=== PATIENT | female | born 1990 | race American Indian/Alaskan Native ===

== ENCOUNTER 2016-07-04 17:41 | Emergency (ER) | payer MEDICAID ==
[2016-07-04 19:23] LABS: Bilirubin,Urine NEG (Negative); Blood,Urine NEG (Negative); Ketones,Urine NEG (Negative); Leukocyte Esterase,Urine NEG (Negative); Mucus,Urine FEW /HPF; Nitrite,Urine NEG (Negative); Protein,Urine <15 mg/dL mg/dL (Negative); Urobilinogen,Urine < 2.0 mg/dL (<2.0); WBC,Urine < 1.0 /HPF (0.0-6.0)
[2016-07-04 19:59] LABS: Basophils % (Auto) 0.7 % (0.0-1.8); Eosinophils % (Auto) 0.7 % (0.0-4.3); Hematocrit 27.3 % (30.3-42.9); Hemoglobin 8.2 gm/dl (10.1-14.3); Mean Corpuscular HGB Conc 30 % (30-34); Mean Corpuscular Volume 62 fl (79-97); Platelet Count 297 K/mm3 (140-440); Red Blood Count 4.39 M/mm3 (3.65-5.03); White Blood Count 8.7 K/mm3 (4.5-11.0)
[2016-07-04 20:00] LABS: Mean Corpuscular Hemoglobin 19 pg (28-32); Red Cell Distribution Width 23.2 % (13.2-15.2)
[2016-07-04 20:19] LABS: Alanine Aminotransferase 11 units/L (7-56); Albumin 3.9 g/dL (3.9-5); Albumin/Globulin Ratio 1.1 %; Alkaline Phosphatase 55 units/L (35-129); Anion Gap 19 mmol/L; BUN/Creatinine Ratio 11.66; Bilirubin,Total 0.4 mg/dL (0.1-1.2); Blood Urea Nitrogen 7 mg/dL (7-17); Calcium 8.8 mg/dL (8.4-10.2); Carbon Dioxide 21 mmol/L (22-30); Chloride 99.8 mmol/L (98-107); Glucose 109 mg/dL (65-100); Lipase 34 units/L (13-60); Potassium 3.8 mmol/L (3.6-5.0); Sodium 136 mmol/L (137-145); Total Protein 7.3 g/dL (6.3-8.2)
[2016-07-05] MEDS ORDERED: BENADRYL PO ONE (02:51)
[2016-07-05] MEDS ORDERED: TYLENOL PO ONE (02:51)
--- NOTE | 2016-07-05 04:54 | Ultrasound Report ---
FINAL REPORT PROCEDURE: US OB TRANSVAGINAL TECHNIQUE: Real-time transvaginal sonography of the uterus, placenta, amniotic fluid, adnexa, and fetus was performed with image documentation. Measurements were obtained to determine age/size. M-mode Doppler was used to document heartbeat. CPT 51923 HISTORY: preg, abd pain COMPARISON: No prior studies are available for comparison. FINDINGS: CRL: 7.8mm, which corresponds to a gestational age of: 6weeks, 5 days. Yolk Sac: Normal. Embryonic Cardiac Activity: 127 beats per minute Gestational Sac: Normal. Right Ovary: There is a complex cyst measuring 2 centimeters. Left Ovary: Normal. Estimated delivery date: 02/23/2017 Comment: Complete anatomic survey at 18-20 weeks suggested. IMPRESSION: 1. Single living intrauterine gestation at approximately 6 weeks and 5 days 2. EDC by US 02/23/2017.
--- NOTE | 2016-07-05 04:56 | Ultrasound Report ---
FINAL REPORT PROCEDURE: US OB \T\lt; = 14 WEEKS FETUS TECHNIQUE: Real-time transabdominal sonography of the uterus, placenta, amniotic fluid, adnexa, and fetus was performed with image documentation. Measurements were obtained to determine age/size. M-mode Doppler was used to document heartbeat. CPT 52336 HISTORY: preg, abd pain COMPARISON: No prior studies are available for comparison. FINDINGS: CRL: 7.8 mm, which corresponds to a gestational age of: 6 weeks, 5 days. Yolk Sac: Normal. Embryonic Cardiac Activity: 127 beats per minute Gestational Sac: Normal. Amniotic fluid: Normal. Cervix: Normal. Right Ovary: There is a 2 centimeter complex cyst. Left Ovary: Normal. Estimated delivery date: 02/23/2017 Uterus and adnexa: Normal. IMPRESSION: Single live intrauterine gestation at approximately 6 weeks and 5 days. EDC by US 02/23/2017
--- NOTE | 2016-07-05 05:19 | Emergency Department Report ---
HPI - General Chief Complaint: Abdominal Pain Time Seen by Provider: 07/05/16 02:42 - HPI HPI: This is a 25-year-old female presents emergency Department with complaint of a 3 week history of intermittent lower abdominal discomfort. Just complains of a irregular menstrual cycle with her last normal menstrual cycle being in April. Patient says that she took 2 different home tests and they were negative. She has a history of right fallopian tube removal secondary to an ectopic . She has taken some Tylenol, but not today, for her symptoms without much relief. The patient also complains of some generalized itching for which she has been taking Benadryl. Patient is with one prior ectopic prior to today's evaluation. She does not have a primary care doctor or SUSTAINABILITY EXECUTIVE DIRECTOR. She denies any vaginal bleeding, vaginal discharge, dysuria, fever, nausea or vomiting. No recent travel or sick contacts at home. ED Past Medical Hx - Past Medical History Previous Medical History?: Yes Additional medical history: ectopic - Surgical History Past Surgical History?: Yes Additional Surgical History: , ectopic , Right fallopian tube removal - Social History Smoking Status: Former Smoker Substance Use Type: Alcohol, Non Opiate Pain - Medications Home Medications: Home Medications Medication Instructions Recorded Confirmed Last Taken Type Ciprofloxacin HCl [Cipro] 250 mg PO BID 05/14/13 05/14/13 Unknown History Loperamide [Imodium] 2 mg PO QID PRN 05/14/13 05/14/13 Unknown History Ondansetron [Zofran Odt] 4 mg PO Q8HR PRN 05/14/13 05/14/13 Unknown History predniSONE [Deltasone] 1 tab PO TID #12 tablet 05/14/13 Unknown Rx Vit-Fe Fumar-FA [ 1 tab PO QDAY #30 tablet 07/05/16 Unknown Rx Vitamin] ED Review of Systems ROS: Stated complaint: SEVERE ABD PAIN/HEADACHE Other details as noted in HPI Comment: All other systems reviewed and negative Constitutional: denies: chills, fever Eyes: denies: eye pain, eye discharge, vision change ENT: denies: ear pain, throat pain Respiratory: denies: cough, shortness of breath, wheezing Cardiovascular: denies: chest pain, palpitations Gastrointestinal: abdominal pain. denies: nausea, vomiting Genitourinary: denies: urgency, dysuria, discharge Musculoskeletal: denies: back pain, joint swelling, arthralgia Skin: pruritus. denies: change in color Neurological: denies: headache, weakness, paresthesias Physical Exam - Physical Exam Vital Signs: Vital Signs 07/04/16 18:19 Temperature 99 F Pulse Rate 74 Respiratory 18 Rate Blood Pressure 110/71 O2 Sat by Pulse 100 Oximetry Physical Exam: GENERAL: The patient is well-developed well-nourished. HEENT: Normocephalic. Atraumatic. Extraocular motions are intact. Patient has moist mucous membranes. Pupils equal reactive to light bilaterally. NECK: Supple. Trachea is midline. CHEST/LUNGS: Clear to auscultation. There is no respiratory distress noted. HEART/CARDIOVASCULAR: Regular. There is no tachycardia. There is no gallop rub or murmur. ABDOMEN: Abdomen is soft. Patient's abdominal discomfort is not reproducible palpation. No guarding or rebound tenderness. No peritoneal signs. Patient has normal bowel sounds. There is no abdominal distention. SKIN: Skin is warm and dry. NEURO: The patient is awake, alert, and oriented. The patient is cooperative. The patient has no focal neurologic deficits. The patient has normal speech. MUSCULOSKELETAL: There is no tenderness or deformity. There is no limitation range of motion. There is no evidence of acute injury. ED Course Vital Signs 07/04/16 18:19 Temperature 99 F Pulse Rate 74 Respiratory 18 Rate Blood Pressure 110/71 O2 Sat by Pulse 100 Oximetry ED Medical Decision Making - Lab Data Result diagrams: 07/04/16 19:36 07/04/16 19:36 - Radiology Data Radiology results: report reviewed Transvaginal/ ultrasound shows a live intrauterine at about 6 weeks and 2 days. - Medical Decision Making 25-year-old female presents the emergency department with complaint of a 3 week history of some lower abdominal discomfort. Despite home tests 2 the patient had a positive urine test here. Her beta hCG quantitative level was at about 30,000. Ultrasound was done that shows a live intrauterine at about 6 weeks. Patient has some anemia but denies any bleeding and does not require any transfusion at this time. Her vital signs are stable throughout her ED course including being afebrile. Her abdominal pain is most likely from being . We discussed the need to come back if she has right lower quadrant localized and/or sharp pains. She will be given vitamins and referrals for SUSTAINABILITY EXECUTIVE DIRECTOR. She will return to the ER with any worsening of her symptoms or any acute distress. - Differential Diagnosis , UTI, fibroids, miscarriage, appendicitis Critical Care Time: No Critical care attestation.: If time is entered above; I have spent that time in minutes in the direct care of this critically ill patient, excluding procedure time. ED Disposition Clinical Impression: Qualifiers: Weeks of gestation: less than 8 weeks Qualified Code(s): Z3A.01 - Less than 8 weeks gestation of Abdominal pain Qualifiers: Abdominal location: lower abdomen, unspecified Qualified Code(s): R10.30 - Lower abdominal pain, unspecified Disposition: DISCHARGED TO HOME OR SELFCARE Is pt being admited?: No Condition: Stable Instructions: Abdominal Pain (ED), (ED) Additional Instructions: Please follow-up with an SUSTAINABILITY EXECUTIVE DIRECTOR in the next few days. Please start taking the vitamins. You can take Tylenol every 4 hours, using weight-based dosing, as needed for fever or discomfort. Otherwise do not take any medications that are not prescribed by a physician. Prescriptions: Vit-Fe Fumar-FA [ Vitamin] 1 tab PO QDAY #30 tablet Referrals: PRIMARY CAREMD [Primary Care Provider] - 3-5 Days DALLAS MORENO MD [Staff Physician] - 3-5 Days FERNANDA RODRIGUEZ MD [Staff Physician] - 3-5 Days ASHTYN AUSTIN MD [Staff Physician] - 3-5 Days Time of Disposition: 05:20
[2016-07-05 06:24] VITALS: BP 123/77
== END 2016-07-05 06:23 | disposition home or self-care (01) ==
LOC: ED 17:41
DX: O26.891 Other specified pregnancy related conditions, first trimester (principal); R10.30 Lower abdominal pain, unspecified; Z3A.01 Less than 8 weeks gestation of pregnancy; Z87.891 Personal history of nicotine dependence
CPT/HCPCS: 36415; 76801; 76817; 80053; 81001; 81025; 83690; 84702; 85025; 99284

== ENCOUNTER 2016-08-10 22:47 | Emergency (ER) | payer MEDICAID ==
[2016-08-11] MEDS ORDERED: BICILLIN L-A IM ONE (03:32)
[2016-08-11] MEDS ORDERED: TYLENOL PO ONE (03:32)
--- NOTE | 2016-08-11 03:46 | Emergency Department Report ---
ED ENT HPI - General Chief complaint: Sore Throat Stated complaint: PREG 12WKS/THROAT PAIN Time Seen by Provider: 08/11/16 02:52 Source: patient Mode of arrival: Ambulatory Limitations: No Limitations - History of Present Illness Initial comments: 25-year-old female 12 weeks presents with complaint of sore throat for 3 days. Recent exposure family member with strep. Positive body aches. Patient speaking in full sentences no wheezing or stridor denies any difficulty breathing. Primarily complaining of sore throat. Took Tylenol at home with minimal relief of pain. MD complaint: sore throat Onset/Timin -: days(s) Location: throat Severity: moderate Severity scale (0 -10): 5 Quality: aching Consistency: constant Improves with: none - Related Data Home Medications Medication Instructions Recorded Confirmed Last Taken Ciprofloxacin HCl [Cipro] 250 mg PO BID 05/14/13 05/14/13 Unknown Loperamide [Imodium] 2 mg PO QID PRN 05/14/13 05/14/13 Unknown Ondansetron [Zofran Odt] 4 mg PO Q8HR PRN 05/14/13 05/14/13 Unknown Previous Rx's Medication Instructions Recorded Last Taken Type predniSONE [Deltasone] 1 tab PO TID #12 tablet 05/14/13 Unknown Rx Vit-Fe Fumar-FA [ 1 tab PO QDAY #30 tablet 07/05/16 Unknown Rx Vitamin] Acetaminophen [Children's 650 mg PO Q8H PRN #1 bottle 08/11/16 Unknown Rx Acetaminophen] Benzocaine/Menthol [Cepacol Sore 1 each MM Q4H PRN #18 lozenge 08/11/16 Unknown Rx Throat Lozenge] Allergies Allergy/AdvReac Type Severity Reaction Status Date / Time No Known Allergies Allergy Verified 05/14/13 00:38 ED Dental HPI - General Chief complaint: Sore Throat Stated complaint: PREG 12WKS/THROAT PAIN Time Seen by Provider: 08/11/16 02:52 Source: patient Mode of arrival: Ambulatory Limitations: No Limitations - Related Data Home Medications Medication Instructions Recorded Confirmed Last Taken Ciprofloxacin HCl [Cipro] 250 mg PO BID 05/14/13 05/14/13 Unknown Loperamide [Imodium] 2 mg PO QID PRN 05/14/13 05/14/13 Unknown Ondansetron [Zofran Odt] 4 mg PO Q8HR PRN 05/14/13 05/14/13 Unknown Previous Rx's Medication Instructions Recorded Last Taken Type predniSONE [Deltasone] 1 tab PO TID #12 tablet 05/14/13 Unknown Rx Vit-Fe Fumar-FA [ 1 tab PO QDAY #30 tablet 07/05/16 Unknown Rx Vitamin] Acetaminophen [Children's 650 mg PO Q8H PRN #1 bottle 08/11/16 Unknown Rx Acetaminophen] Benzocaine/Menthol [Cepacol Sore 1 each MM Q4H PRN #18 lozenge 08/11/16 Unknown Rx Throat Lozenge] Allergies Allergy/AdvReac Type Severity Reaction Status Date / Time No Known Allergies Allergy Verified 05/14/13 00:38 ED Review of Systems ROS: Stated complaint: PREG 12WKS/THROAT PAIN Other details as noted in HPI Constitutional: denies: chills, fever Eyes: denies: eye pain, eye discharge, vision change ENT: throat pain. denies: ear pain Respiratory: denies: cough, shortness of breath, wheezing Cardiovascular: denies: chest pain, palpitations Endocrine: no symptoms reported Gastrointestinal: denies: abdominal pain, nausea, diarrhea Genitourinary: denies: urgency, dysuria, discharge Musculoskeletal: denies: back pain, joint swelling, arthralgia Skin: denies: rash, lesions Neurological: denies: headache, weakness, paresthesias Psychiatric: denies: anxiety, depression Hematological/Lymphatic: denies: easy bleeding, easy bruising ED Past Medical Hx - Past Medical History Previous Medical History?: Yes Additional medical history: ectopic - Surgical History Past Surgical History?: Yes Additional Surgical History: , ectopic , Right fallopian tube removal - Social History Smoking Status: Never Smoker Substance Use Type: None - Medications Home Medications: Home Medications Medication Instructions Recorded Confirmed Last Taken Type Ciprofloxacin HCl [Cipro] 250 mg PO BID 05/14/13 05/14/13 Unknown History Loperamide [Imodium] 2 mg PO QID PRN 05/14/13 05/14/13 Unknown History Ondansetron [Zofran Odt] 4 mg PO Q8HR PRN 05/14/13 05/14/13 Unknown History predniSONE [Deltasone] 1 tab PO TID #12 tablet 05/14/13 Unknown Rx Vit-Fe Fumar-FA [ 1 tab PO QDAY #30 tablet 07/05/16 Unknown Rx Vitamin] Acetaminophen [Children's 650 mg PO Q8H PRN #1 bottle 08/11/16 Unknown Rx Acetaminophen] Benzocaine/Menthol [Cepacol Sore 1 each MM Q4H PRN #18 lozenge 08/11/16 Unknown Rx Throat Lozenge] ED Physical Exam - General Limitations: No Limitations General appearance: alert, in no apparent distress - Head Head exam: Present: atraumatic, normocephalic - Eye Eye exam: Present: normal appearance, PERRL, EOMI - ENT ENT exam: Present: mucous membranes moist - Expanded ENT Exam Expanded Throat exam: Positive: tonsillar erythema, tonsillar exudate (uvula is midline no signs of a peritonsillar abscess, tonsillar exudates and tonsillar erythema worse on right) - Neck Neck exam: Present: normal inspection - Respiratory Respiratory exam: Present: normal lung sounds bilaterally. Absent: respiratory distress - Cardiovascular Cardiovascular Exam: Present: regular rate, normal rhythm. Absent: systolic murmur, diastolic murmur, rubs, gallop - GI/Abdominal GI/Abdominal exam: Present: soft, normal bowel sounds - Extremities Exam Extremities exam: Present: normal inspection - Back Exam Back exam: Present: normal inspection - Neurological Exam Neurological exam: Present: alert, oriented X3 - Psychiatric Psychiatric exam: Present: normal affect, normal mood - Skin Skin exam: Present: warm, dry, intact, normal color. Absent: rash ED Course Vital Signs 08/10/16 23:02 Temperature 98.5 F Pulse Rate 80 Respiratory 18 Rate Blood Pressure 122/66 O2 Sat by Pulse 99 Oximetry ED Medical Decision Making - Medical Decision Making A/P: Strep pharyngitis 1-Bicillin treatment empiric 2-no signs of peritonsillar abscess clinically, patient able to tolerate by mouth Tylenol when necessary. Patient is currently cannot give NSAIDs 3-throat lozenges 4-follow-up with primary care doctor Critical care attestation.: If time is entered above; I have spent that time in minutes in the direct care of this critically ill patient, excluding procedure time. ED Disposition Clinical Impression: Strep pharyngitis Disposition: DISCHARGED TO HOME OR SELFCARE Is pt being admited?: No Does the pt Need Aspirin: No Condition: Stable Instructions: Strep Throat (ED) Prescriptions: Acetaminophen [Children's Acetaminophen] 650 mg PO Q8H PRN #1 bottle PRN Reason: Sore Throat Benzocaine/Menthol [Cepacol Sore Throat Lozenge] 1 each MM Q4H PRN #18 lozenge PRN Reason: Sore Throat Forms: Accompanied Note, Work/School Release Form(ED) Time of Disposition: 04:03
[2016-08-11 04:26] VITALS: BP 123/75
== END 2016-08-11 04:20 | disposition home or self-care (01) ==
LOC: ED 22:47
DX: O98.811 Other maternal infectious and parasitic diseases complicating pregnancy, first trimester (principal); J02.0 Streptococcal pharyngitis; Z3A.12 12 weeks gestation of pregnancy
CPT/HCPCS: 87430; 96372; 99282; J0561

== ENCOUNTER 2018-09-16 17:34 | Emergency (ER) | payer MEDICAID, OTHER ==
--- NOTE | 2018-09-16 17:54 | Emergency Department Report ---
Blank Doc - Documentation Documentation: This is a 27-year-old female that presents with left sided chest pain and SOB. Stated radiates to left arm area. This initial assessment/diagnostic orders/clinical plan/treatment(s) is/are subject to change based on patient's health status, clinical progression and re-assessment by fellow clinical providers in the ED. Further treatment and workup at subsequent clinical providers discretion. Patient/guardians urged not to elope from the ED as their condition may be serious if not clinically assessed and managed. Initial orders include: 1- Patient sent to MAIN ED for further evaluation and treatment 2- EKG 3- CXR 4- labs
[2018-09-16 18:29] LABS: Basophils # (Auto) 0.1 K/mm3 (0.0-0.1); Basophils % (Auto) 1.1 % (0.0-1.8); Eosinophils % (Auto) 0.4 % (0.0-4.3); Hematocrit 30.8 % (30.3-42.9); Hemoglobin 9.3 gm/dl (10.1-14.3); Lymphocytes # (Auto) 2.3 K/mm3 (1.2-5.4); Lymphocytes % (Auto) 24.8 % (13.4-35.0); Mean Corpuscular HGB Conc 30 % (30-34); Monocytes # (Auto) 0.9 K/mm3 (0.0-0.8); Monocytes % (Auto) 9.1 % (0.0-7.3); Platelet Count 412 K/mm3 (140-440); Red Blood Count 4.77 M/mm3 (3.65-5.03)
[2018-09-16 18:31] LABS: Mean Corpuscular Volume 64 fl (79-97); Red Cell Distribution Width 22.1 % (13.2-15.2)
[2018-09-16 18:39] LABS: INR 1.06 (0.87-1.13)
[2018-09-16 18:40] LABS: Partial Thromboplastin Time 24.4 Sec. (24.2-36.6)
[2018-09-16 19:03] LABS: BUN/Creatinine Ratio 7; Blood Urea Nitrogen 5 mg/dL (7-17); Calcium 9.2 mg/dL (8.4-10.2); Hemolysis Index 0
[2018-09-16] MEDS ORDERED: NACL 0.9% 1000 ML 1,000 ML IV ONE (22:56)
[2018-09-16] MEDS ORDERED: ZOFRAN IV ONE (22:56)
[2018-09-16] MEDS ORDERED: TORADOL IV ONE (22:56)
--- NOTE | 2018-09-16 23:31 | Emergency Department Report ---
ED Chest Pain HPI - General Chief Complaint: Chest Pain Stated Complaint: CHEST PAIN/ANXIETY Time Seen by Provider: 09/16/18 17:53 Source: patient Mode of arrival: Ambulatory Limitations: No Limitations - History of Present Illness Initial Comments: 27-year-old female with a past medical history of previous ectopic presents to the hospital complaining left-sided sharp intermittent chest pain started following her elective outpatient 3 days ago. Pain is intermittent. Patient had intermittent fluttering sensation. No aggravating or alleviating factors reported. Also associated mild shortness of breath. Last night patient developed nausea with with a lot of diarrhea. Today she had 4-5 episodes of vomiting with associated lightheadedness and generalized headache. She denies fever, dysuria, recent travel, sick contacts, history of PE/DVT, calf tenderness, or leg edema. Pt states she also has like a heart is fluttering intermittently and reports she is under a lot of stress lately. Pt states that an ultrasound was performed prior to her confirming an IUP and she has scheduled to follow up with them. She complains of mild suprapubic cramps similar to menstrual cramps with vaginal bleeding since . Severity scale (0 -10): 7 - Related Data Home Medications Medication Instructions Recorded Confirmed Last Taken Ciprofloxacin HCl [Cipro] 250 mg PO BID 05/14/13 05/14/13 Unknown Ondansetron [Zofran Odt] 4 mg PO Q8HR PRN 05/14/13 05/14/13 Unknown Previous Rx's Medication Instructions Recorded Last Taken Type predniSONE [Deltasone] 1 tab PO TID #12 tablet 05/14/13 Unknown Rx Vit-Fe Fumar-FA [ 1 tab PO QDAY #30 tablet 07/05/16 Unknown Rx Vitamin] Acetaminophen [Children's 650 mg PO Q8H PRN #1 bottle 08/11/16 Unknown Rx Acetaminophen] Benzocaine/Menthol [Cepacol Sore 1 each MM Q4H PRN #18 lozenge 08/11/16 Unknown Rx Throat Lozenge] Ibuprofen [Motrin] 800 mg PO Q8HR PRN #20 tablet 09/17/18 Unknown Rx Loperamide [Imodium] 2 mg PO QID PRN #20 capsule 09/17/18 Unknown Rx Ondansetron [Zofran Odt] 4 mg PO Q8HR PRN #20 tab.rapdis 09/17/18 Unknown Rx traMADol [Ultram 50 MG tab] 50 mg PO Q6HR PRN #15 tablet 09/17/18 Unknown Rx Allergies Allergy/AdvReac Type Severity Reaction Status Date / Time No Known Allergies Allergy Verified 05/14/13 00:38 Heart Score - HEART Score History: Slightly suspicious EKG: Normal Age: < 45 Risk factors: No known risk factors Troponin: < normal limit HEART Score: 0 ED Review of Systems ROS: Stated complaint: CHEST PAIN/ANXIETY Other details as noted in HPI Comment: All other systems reviewed and negative ED Past Medical Hx - Past Medical History Previous Medical History?: Yes Additional medical history: ectopic - Surgical History Past Surgical History?: Yes Additional Surgical History: , ectopic , Right fallopian tube removal - Social History Smoking Status: Never Smoker Substance Use Type: None - Medications Home Medications: Home Medications Medication Instructions Recorded Confirmed Last Taken Type Ciprofloxacin HCl [Cipro] 250 mg PO BID 05/14/13 05/14/13 Unknown History Ondansetron [Zofran Odt] 4 mg PO Q8HR PRN 05/14/13 05/14/13 Unknown History predniSONE [Deltasone] 1 tab PO TID #12 tablet 05/14/13 Unknown Rx Vit-Fe Fumar-FA [ 1 tab PO QDAY #30 tablet 07/05/16 Unknown Rx Vitamin] Acetaminophen [Children's 650 mg PO Q8H PRN #1 bottle 08/11/16 Unknown Rx Acetaminophen] Benzocaine/Menthol [Cepacol Sore 1 each MM Q4H PRN #18 lozenge 08/11/16 Unknown Rx Throat Lozenge] Ibuprofen [Motrin] 800 mg PO Q8HR PRN #20 tablet 09/17/18 Unknown Rx Loperamide [Imodium] 2 mg PO QID PRN #20 capsule 09/17/18 Unknown Rx Ondansetron [Zofran Odt] 4 mg PO Q8HR PRN #20 tab.rapdis 09/17/18 Unknown Rx traMADol [Ultram 50 MG tab] 50 mg PO Q6HR PRN #15 tablet 09/17/18 Unknown Rx ED Physical Exam - General Limitations: No Limitations - Other Other exam information: General: No limitations, patient is alert in no acute distress Head exam: Atraumatic, normocephalic Eyes exam: Normal appearance, pupils equal reactive to light, extraocular mo vements intact ENT: Moist mucous membrane, normal oropharynx Neck exam: Normal inspection, full range of motion, no meningismus nontender Respiratory exam: Clear to auscultation bilateral, no wheezes, rales, crackles Cardiovascular: Normal rate and rhythm, reducible left-sided upper chest wall tenderness Abdomen: Soft, nondistended, and mild suprapubic tenderness, with normal bowel sounds, no rebound, or guarding Extremity: Full range of motion normal inspection no deformity, no calf tenderness or leg edema Back: Normal Inspection, full range of motion, no tenderness Neurologic: Alert, oriented x3, cranial nerves intact, no motor or sensory deficit Psychiatric: normal affect, normal mood Skin: Warm, dry, intact ED Course Vital Signs 09/16/18 17:40 Temperature 98.7 F Pulse Rate 89 Respiratory 18 Rate Blood Pressure 158/99 [Right] O2 Sat by Pulse 99 Oximetry [place] score - [place] Score Age > 65: (0) No Aspirin use within the Past 7 Days: (0) No 3 or more CAD Risk Factors: (0) No 2 or more Angina events in past 24 hrs: (0) No Known CAD with more than 50% Stenosis: (0) No Elevated Cardiac Markers: (0) No ST Deviation Greater than 0.5mm: (0) No [place] Score: 0 ED Medical Decision Making - Lab Data Result diagrams: 09/16/18 18:06 09/16/18 18:06 Lab Results 09/16/18 09/16/18 09/16/18 Range/Units 18:06 18:06 18:06 WBC 9.4 (4.5-11.0) K/mm3 RBC 4.77 (3.65-5.03) M/mm3 Hgb 9.3 L (10.1-14.3) gm/dl Hct 30.8 (30.3-42.9) % MCV 64 L (79-97) fl MCH 20 L (28-32) pg MCHC 30 (30-34) % RDW 22.1 H (13.2-15.2) % Plt Count 412 (140-440) K/mm3 Lymph % (Auto) 24.8 (13.4-35.0) % Calvert % (Auto) 9.1 H (0.0-7.3) % Eos % (Auto) 0.4 (0.0-4.3) % Baso % (Auto) 1.1 (0.0-1.8) % Lymph # 2.3 (1.2-5.4) K/mm3 Calvert # 0.9 H (0.0-0.8) K/mm3 Eos # 0.0 (0.0-0.4) K/mm3 Baso # 0.1 (0.0-0.1) K/mm3 Seg Neutrophils % 64.6 (40.0-70.0) % Seg Neutrophils # 6.0 (1.8-7.7) K/mm3 PT (12.2-14.9) Sec. INR (0.87-1.13) APTT (24.2-36.6) Sec. D-Dimer (0-234) ng/mlDDU Sodium 136 L (137-145) mmol/L Potassium 3.6 (3.6-5.0) mmol/L Chloride 98.9 (98-107) mmol/L Carbon Dioxide 22 (22-30) mmol/L Anion Gap 19 mmol/L BUN 5 L (7-17) mg/dL Creatinine 0.7 (0.7-1.2) mg/dL Estimated GFR > 60 ml/min BUN/Creatinine Ratio 7 % Glucose 85 (65-100) mg/dL Calcium 9.2 (8.4-10.2) mg/dL Troponin T < 0.010 (0.00-0.029) ng/mL HCG, Qual Positive (Negative) HCG, Quant (0-4) mIU/mL 09/16/18 09/16/18 09/16/18 Range/Units 18:06 18:06 21:07 WBC (4.5-11.0) K/mm3 RBC (3.65-5.03) M/mm3 Hgb (10.1-14.3) gm/dl Hct (30.3-42.9) % MCV (79-97) fl MCH (28-32) pg MCHC (30-34) % RDW (13.2-15.2) % Plt Count (140-440) K/mm3 Lymph % (Auto) (13.4-35.0) % Calvert % (Auto) (0.0-7.3) % Eos % (Auto) (0.0-4.3) % Baso % (Auto) (0.0-1.8) % Lymph # (1.2-5.4) K/mm3 Calvert # (0.0-0.8) K/mm3 Eos # (0.0-0.4) K/mm3 Baso # (0.0-0.1) K/mm3 Seg Neutrophils % (40.0-70.0) % Seg Neutrophils # (1.8-7.7) K/mm3 PT 14.5 (12.2-14.9) Sec. INR 1.06 (0.87-1.13) APTT 24.4 (24.2-36.6) Sec. D-Dimer 281.03 H (0-234) ng/mlDDU Sodium (137-145) mmol/L Potassium (3.6-5.0) mmol/L Chloride (98-107) mmol/L Carbon Dioxide (22-30) mmol/L Anion Gap mmol/L BUN (7-17) mg/dL Creatinine (0.7-1.2) mg/dL Estimated GFR ml/min BUN/Creatinine Ratio % Glucose (65-100) mg/dL Calcium (8.4-10.2) mg/dL Troponin T < 0.010 (0.00-0.029) ng/mL HCG, Qual (Negative) HCG, Quant (0-4) mIU/mL 09/16/18 Range/Units 22:50 WBC (4.5-11.0) K/mm3 RBC (3.65-5.03) M/mm3 Hgb (10.1-14.3) gm/dl Hct (30.3-42.9) % MCV (79-97) fl MCH (28-32) pg MCHC (30-34) % RDW (13.2-15.2) % Plt Count (140-440) K/mm3 Lymph % (Auto) (13.4-35.0) % Calvert % (Auto) (0.0-7.3) % Eos % (Auto) (0.0-4.3) % Baso % (Auto) (0.0-1.8) % Lymph # (1.2-5.4) K/mm3 Calvert # (0.0-0.8) K/mm3 Eos # (0.0-0.4) K/mm3 Baso # (0.0-0.1) K/mm3 Seg Neutrophils % (40.0-70.0) % Seg Neutrophils # (1.8-7.7) K/mm3 PT (12.2-14.9) Sec. INR (0.87-1.13) APTT (24.2-36.6) Sec. D-Dimer (0-234) ng/mlDDU Sodium (137-145) mmol/L Potassium (3.6-5.0) mmol/L Chloride (98-107) mmol/L Carbon Dioxide (22-30) mmol/L Anion Gap mmol/L BUN (7-17) mg/dL Creatinine (0.7-1.2) mg/dL Estimated GFR ml/min BUN/Creatinine Ratio % Glucose (65-100) mg/dL Calcium (8.4-10.2) mg/dL Troponin T (0.00-0.029) ng/mL HCG, Qual (Negative) HCG, Quant 1036 H (0-4) mIU/mL - EKG Data -: EKG Interpreted by Tn EKG shows normal: sinus rhythm, axis (qrs 59), QRS complexes (qrsd 107), ST-T waves (no stemi) Rate: normal (59) - EKG Data When compared to previous EKG there are: previous EKG unavailable - Radiology Data Radiology results: report reviewed PROCEDURE: CT ANGIO CHEST TECHNIQUE: Computerized tomographic angiography of the chest was performed during the IV injection of iodinated nonionic contrast including image processing. The image data was postprocessed using 2-dimensional multiplanar reformatted (MPR) and 3-dimensional (MIP and/or volume rendered) techniques. Automated exposure control, adjustment of mA and/or kV according to patient size, or iterative reconstruction dose optimization techniques were utilized. HISTORY: left cp, mild ddimer elevation COMPARISONS: None . FINDINGS: Pulmonary out flow tract, right and left main pulmonary arteries and the approximal branches: Clear, no filling defects seen to suggest pulmonary embolus. Pericardium: No evidence of pericardial effusion. Thoracic aorta: No evidence of aneurysmal dilatation or dissection. Coronary arteries: Are unremarkable. Mediastinum and hilar regions: Non specific subcentimeter lymph nodes are v isualized. No pathologically enlarged lymph nodes or masses are identified. Lung Starr: Clear. Upper abdomen: No acute or focal abnormality is seen. Other: No acute bone abnormalities are visualized. IMPRESSION: No evidence of pulmonary embolus. No acute abnormalities identified. - Medical Decision Making pt had itching after return from ct with IV contst given benadryl with improvement, decadron x1 also given tx with toradol, zofran, and 1 L NS for n/v since yesterday, tolerating po and improvement in [place] and vomiting plan to d/c with sx tx for gastroenteritis. - Differential Diagnosis appendicitis, gastroenteritis, costochondritis, PE, pneumothorax, viral syn Critical Care Time: No Critical care attestation.: If time is entered above; I have spent that time in minutes in the direct care of this critically ill patient, excluding procedure time. ED Disposition Clinical Impression: Gastroenteritis, Costochondritis, acute Disposition: - TO HOME OR SELFCARE Is pt being admited?: No Does the pt Need Aspirin: No Condition: Stable Instructions: Gastroenteritis (ED), Costochondritis (ED) Additional Instructions: Take the medication as prescribed. Follow up with your doctor or the clinic/doctor provided. Return if symptoms worsen as indicated by your discharge instructions Prescriptions: Loperamide [Imodium] 2 mg PO QID PRN #20 capsule PRN Reason: Diarrhea Ibuprofen [Motrin] 800 mg PO Q8HR PRN #20 tablet PRN Reason: Pain, Moderate (4-6) traMADol [Ultram 50 MG tab] 50 mg PO Q6HR PRN #15 tablet PRN Reason: Pain , Severe (7-10) Ondansetron [Zofran Odt] 4 mg PO Q8HR PRN #20 tab.rapdis PRN Reason: Nausea And Vomiting Referrals: [facility] MD LUIS [Primary Care Provider] - 3-5 Days AISSATOU HERRERA MD [Staff Physician] - 3-5 Days
[2018-09-17] MEDS ORDERED: BENADRYL IV ONE (00:30)
--- NOTE | 2018-09-17 00:37 | XRay Report ---
PROCEDURE: XR CHEST ROUTINE 2V TECHNIQUE: PA and lateral chest radiographs were obtained. HISTORY: Chest Pain COMPARISONS: None. FINDINGS: Heart: Normal. Mediastinum/Vessels: Normal. Lungs/Pleural space: Normal. Bony thorax: No acute osseous abnormality. IMPRESSION: Normal examination. This document is electronically signed by Kana Woods MD., September 17 2018 12:36:10 AM ET
--- NOTE | 2018-09-17 00:52 | Cat Scan Report ---
PROCEDURE: CT ANGIO CHEST TECHNIQUE: Computerized tomographic angiography of the chest was performed during the IV injection o f iodinated nonionic contrast including image processing. The image data was postprocessed using 2-d imensional multiplanar reformatted (MPR) and 3-dimensional (MIP and/or volume rendered) techniques. A utomated exposure control, adjustment of mA and/or kV according to patient size, or iterative reconst ruction dose optimization techniques were utilized. HISTORY: left cp, mild ddimer elevation COMPARISONS: None . FINDINGS: Pulmonary out flow tract, right and left main pulmonary arteries and the approximal branches: Clear, no filling defects seen to suggest pulmonary embolus. Pericardium: No evidence of pericardial effusion. Thoracic aorta: No evidence of aneurysmal dilatation or dissection. Coronary arteries: Are unremarkable. Mediastinum and hilar regions: Non specific subcentimeter lymph nodes are visualized. No pathologica lly enlarged lymph nodes or masses are identified. Lung Starr: Clear. Upper abdomen: No acute or focal abnormality is seen. Other: No acute bone abnormalities are visualized. IMPRESSION: No evidence of pulmonary embolus. No acute abnormalities identified. This document is electronically signed by Kenneth العراقي MD., September 17 2018 12:50:33 AM ET
[2018-09-17] MEDS ORDERED: DECADRON IV ONE (00:57)
[2018-09-17 02:19] VITALS: BP 113/63
== END 2018-09-17 02:25 | disposition home or self-care (01) ==
LOC: ED 17:34
DX: K52.9 Noninfective gastroenteritis and colitis, unspecified (principal); M94.0 Chondrocostal junction syndrome [Tietze]; Z79.899 Other long term (current) drug therapy
CPT/HCPCS: 36415; 71046; 71275; 80048; 84484; 84702; 84703; 85025; 85379; 85610; 85730; 93005; 93010; 96361; 96374; 96375; 99285; J1100; J1200; J1885; J2405; J7030; Q9967